=== PATIENT | male | born 1995 | race Caucasian/White ===

== ENCOUNTER 2018-12-28 04:30 | Emergency (ER) | payer SELFPAY ==
[~2018-12-28] VITALS: Ht 182.9 cm; Wt 68.0 kg
[2018-12-28 04:39] VITALS: BP 142/80
== END 2018-12-28 09:10 | disposition left against medical advice (07) ==
LOC: ER 04:30
DX: M54.9 Dorsalgia, unspecified (principal); Z53.21 Procedure and treatment not carried out due to patient leaving prior to being seen by health care provider